=== PATIENT | male | born 2005 | race Caucasian/White ===

== ENCOUNTER 2024-02-08 16:45 | Emergency (ER) | payer SELFPAY ==
[2024-02-08] MEDS: Ibuprofen 800 MG Tab PO ONE (18:47)
[2024-02-08] MEDS: Doxycycline Monohydrate 100 MG Cap PO ONE (20:10)
== END 2024-02-08 20:10 | disposition home or self-care (01) ==
LOC: JD.ED 16:45
DX: N45.1 Epididymitis (principal); Z79.899 Other long term (current) drug therapy
CPT/HCPCS: 76870; 93975; 99284; A9270